=== PATIENT | female | born 1940 | race Two or more races ===

== ENCOUNTER 2023-03-08 07:28 | Inpatient (IN) | payer OTHER ==
[~2023-03-08] VITALS: Ht 147.3 cm; Wt 45.4 kg
[2023-03-08] MEDS ORDERED: CLONAZEPAM1 MG PO (08:07)
[2023-03-08] MEDS ORDERED: OLANZAPINE5 MG PO (08:07)
[2023-03-08] MEDS ORDERED: SIMVASTA PO (08:08)
[2023-03-12] MEDS ORDERED: BREO ELLIPTA 21 EACH (13:21)
[2023-03-12] MEDS ORDERED: DORZOLAMIDE HCL10 ML (13:21)
[2023-03-12] MEDS ORDERED: RESTORIL30 MG (13:21)
[2023-03-12] MEDS ORDERED: SIMVASTATIN20 MG (13:21)
[2023-03-14] MEDS ORDERED: NORFLEX100MG PO (12:02)
[2023-03-14] MEDS ORDERED: GABAPENTIN100 MG PO (12:02)
[2023-03-14] MEDS ORDERED: OXYC1TAB9 PO (12:02)
[2023-03-14] MEDS ORDERED: XARELTO10 MG PO (12:03)
== END 2023-03-14 17:16 | DRG 470 ==
LOC: SURH 03-12 06:21 → O/R 03-12 06:21 → SURH 03-12 08:15
PROVIDERS: ADMIT Orthopaedic Surgery; ATTEND Orthopaedic Surgery
PROC: 0SRD0JZ Replacement of Left Knee Joint with Synthetic Substitute, Open Approach (ICD-10-PCS; principal; 2023-03-12 10:25)
DX: M17.12 Unilateral primary osteoarthritis, left knee (principal); D62 Acute posthemorrhagic anemia; M85.662 Other cyst of bone, left lower leg; R26.89 Other abnormalities of gait and mobility; I10 Essential (primary) hypertension